=== PATIENT | female | born 1970 | race African-American/Black ===

== ENCOUNTER → 2017-04-03 | Outpatient (CLI) | payer OTHER ==
--- NOTE | ~2017-04-03 | CR211 ---
[facility] A Service of [facility] & [facility] RADIOLOGY TEXT RESULTS PATIENT: JENNIFER SCOTT LOCATION: [facility] : [birth year] UNIT #: [id number] AGE: [address]: Nina Estevez MD SEX: F ORDER DR: [id number] [facility] [address] [place], [place] [address] [id number] MR#: [id number] Acc #: [id number] NAME: JENNIFER SCOTT : 1970 SEX: F STUDY DATE/TIME: UNIT: [facility] ROOM: STUDY DESCRIPTION: CR Ribs Uni 2 View W PA Ch Rt Attending Physician: Nina Estevez M.D. Referring Physician: Nina Estevez M.D. Ordering Physician: Nina Estevez M.D. Primary Care Physician: Nina Estevez M.D. MEDICAL IMAGING REPORT This report is preliminary unless electronic signature is present EXAM Chest with right rib series 04/03/2017 1317 hours HISTORY 47-year-old with complaint of right-sided chest pain for more than 6 months. Popping sensation at sternum for 2 months. COMPARISON None FINDINGS Upright PA view of the chest demonstrates normal cardiac, mediastinal and hilar contours. The lungs are clear and there are no effusions. AP and oblique views of the right ribs demonstrate no rib fracture or rib lesion. IMPRESSION Normal chest and right rib series. The study does not include a lateral view and therefore imaging of the sternum is limited. Dictated by... Carissa Guevara M.D. THIS IS AN ELECTRONICALLY VERIFIED REPORT Carissa Guevara M.D. at 04/05/2017 9:25 AM SMM/to TD: 04/04/2017 15:57 JOB #: [id number] MEDICAL IMAGING REPORT Page 1 of 1 COPY
== END | disposition home or self-care (01) ==
LOC: CRAD 12:43
DX: R07.81 Pleurodynia (principal)
CPT/HCPCS: 71101